=== PATIENT | male | born 1995 | race Caucasian/White ===

== ENCOUNTER → 2016-05-12 | Outpatient (CLI) | payer BC ==
--- NOTE | 2016-05-13 13:38 | MR ---
EXAM DATE: 05/12/16 PATIENT'S AGE: 20 Patient: EM UMANZOR Facility: [place], [place] Site . Site : 1995 Study: MRI Head [id number]/7/2017 6:20:23 PM Ordering Physician: Joann Hill Final Report: INDICATION: Paresthesias, history of frontal head injury, new onset headaches, abnormal neurological examination. Technique: Multiplanar multi sequence MR imaging of the brain was performed without intravenous contrast. Comparison: CT scan of the head 04/21/2016 Findings: No acute ischemia, edema, mass effect, midline shift, or hydrocephalus is demonstrated. Brain parenchymal volume appears within normal limits for age. The ventricular system is unremarkable. There is no parenchymal hemosiderin deposition. The expected major intracranial arterial flow voids are present proximally. The orbital contents are grossly unremarkable. There is extensive pansinus mucosal thickening. Mastoid air cells appear well-aerated. Impression : 1. No acute intracranial abnormality. 2. No parenchymal hemosiderin deposition. 3. Extensive pansinus mucosal thickening. Dictated by Esdras Gilliam MD @ May 13 2016 9:33AM (Electronic Signature) Report Signed by Proxy and Original Signed Document filed in the Medical Record. [facility]
== END ==
LOC: MW.MRI 15:57
PROVIDERS: ATTEND Family Medicine
DX: R20.2 Paresthesia of skin (principal); R29.90 Unspecified symptoms and signs involving the nervous system
CPT/HCPCS: 70551; 70551-26

== ENCOUNTER → 2016-07-03 | Outpatient (CLI) | payer BC ==
--- NOTE | 2016-07-03 07:43 | PCM.PRNOTE ---
- Free Text/Narrative Note: Date of service 07/03/2016 Exercise ECG Indication palpitation Patient was brought to the stress test lab in postabsorptive state verbal and paper consent was obtained from patient Vital signs at resting state blood pressure of 112/74 with a heart rate of 81 EKG shows sinus rhythm, No ST changes Maximal heart rate of 179 and target heart rate is 168 Patient reached the target heart rate, completed stage III Ramón protocol EKG shows sinus tachycardia, no further ST changes, intermittent wide QRS complex beat, at the HR 120s, 170s, suspecting pre-excitation. Peak blood pressure is 146/78 Total exercise time of 11.13 minutes METS 12.8 The test terminated due to reaching target HR Impression Normal hemodynamics, normal chronotropic, good exercise capacity Plan Per primary team
--- NOTE | 2016-07-07 17:15 | ECHO ---
The echocardiogram report can be seen in this patient's EMR in the Reports section MTDD
== END ==
LOC: MW.NM 07:08
PROVIDERS: ATTEND Family Medicine
DX: R07.9 Chest pain, unspecified (principal)
CPT/HCPCS: 93017; 93306

== ENCOUNTER 2017-12-05 20:27 | Emergency (ER) | payer BC, OTHER ==
--- NOTE | 2017-12-05 20:54 | EDM.PDOC ---
<Shabbir Gifford - Last Filed: 12/05/17 22:00> ED HPI GENERAL MEDICAL PROBLEM - General Chief Complaint: Laceration Stated Complaint: CUT HIS WRIST CUT AT WORK Time Seen by Provider: 12/05/17 20:50 Source of Information: Reports: Patient History Limitations: Reports: No Limitations - History of Present Illness INITIAL COMMENTS - FREE TEXT/NARRATIVE: HISTORY AND PHYSICAL: History of present illness: Patient is a 22-year-old male here with complaint of left wrist injury and laceration. He states that he was using a high-speed saw when it "blew up" and cut him in the left volar wrist on the radial side. Patient feels that some of the saw pieces may be left in the wrist. He states that he has pain and feels popping when he tries to extend his wrist. Review of systems: As per history of present illness and below otherwise all systems reviewed and negative. Past medical history: As per history of present illness and as reviewed below otherwise noncontributory. Surgical history: As per history of present illness and as reviewed below otherwise noncontributory. Social history: No reported history of drug or alcohol abuse. Family history: As per history of present illness and as reviewed below otherwise noncontributory. Physical exam: General: Patient sitting comfortably in no acute distress and nontoxic appearing HEENT: Atraumatic, normocephalic, pupils reactive, negative for conjunctival pallor or scleral icterus, mucous membranes moist, throat clear, neck supple, nontender, trachea midline. No meningeal signs. Lungs: Clear to auscultation, breath sounds equal bilaterally, chest nontender. Heart: S1S2, regular, negative for clicks, rubs, or overt murmur. Abdomen: Soft, nondistended, nontender. Negative for masses or hepatosplenomegaly. Negative for costovertebral tenderness. Extremities: There is a 2cm deep laceration to left volar wrist on the radial side. Patient has full ROM 2nd-5th digits, unable to move MCP of 1st digit. negative for cords or calf pain. Neurovascular unremarkable. Neuro: Awake, alert, oriented. Cranial nerves II through XII unremarkable. Cerebellum unremarkable. Motor and sensory unremarkable throughout. Exam nonfocal. Notes: Discussed with Dr. Yates, hand surgeon at [facility], he suggest flushing, debriding, and suturing close. Follow up with Dr. Yates at his clinic tomorrow. Wound closed by Dr. Gleason. Diagnostics: Left wrist x-ray Therapeutics: 4mg Morphine IV Tdap Prescriptions: Impression: Laceration left hand Plan: 1. Follow up with Dr. Yates, hand surgery, at his clinic in [facility] 2. Return to ED as needed as discussed Definitive disposition and diagnosis as appropriate pending reevaluation and review of above. left wrist Pain Score (Numeric/FACES): 10 - Related Data Allergies Allergy/AdvReac Type Severity Reaction Status Date / Time ibuprofen Allergy Other Verified 12/05/17 20:50 Home Meds: Home Meds . [No Known Home Meds] 12/05/17 [History] Past Medical History - Past Health History Medical/Surgical History: Denies Medical/Surgical History HEENT History: Reports: None Cardiovascular History: Reports: Other (See Below) Other Cardiovascular History: tachycardia Respiratory History: Reports: None Gastrointestinal History: Reports: None Genitourinary History: Reports: None Musculoskeletal History: Reports: None Neurological History: Reports: None Psychiatric History: Reports: None Endocrine/Metabolic History: Reports: None Hematologic History: Reports: None Oncologic (Cancer) History: Reports: None Dermatologic History: Reports: None - Infectious Disease History Infectious Disease History: Reports: Influenza - Past Surgical History HEENT Surgical History: Reports: Oral Surgery Cardiovascular Surgical History: Reports: Other (See Below) Social & Family History - Family History Family Medical History: Noncontributory - Caffeine Use Caffeine Use: Reports: None ED ROS GENERAL - Review of Systems Review Of Systems: ROS reveals no pertinent complaints other than HPI. ED EXAM, SKIN/RASH Exam: See Below (see dictation) Course - Vital Signs Last Recorded V/S: Last Vital Signs Temp 96.5 F 12/05/17 20:27 Pulse 76 12/05/17 21:15 Resp 18 12/05/17 21:15 BP 116/66 12/05/17 20:27 Pulse Ox 99 12/05/17 21:15 - Orders/Labs/Meds Orders: Active Orders 24 hr Category Date Time Status Vaccines to be Administered [RC] PER UNIT ROUTINE Care 12/05/17 21:55 Active Wrist 2V Lt [CR] Stat Exams 12/05/17 20:44 Taken Meds: Medications Discontinued Medications Generic Name Dose Route Start Last Admin Trade Name Farzad PRN Reason Stop Dose Admin Bacitracin Confirm 12/06/17 00:06 12/06/17 00:13 Bacitracin Oint 1 Gm Administered 12/06/17 00:07 Not Given Dose 1 dose .ROUTE .STK-MED ONE Bacitracin 1 dose 12/06/17 00:13 12/06/17 00:14 Bacitracin Oint 1 Gm TOP 12/06/17 00:14 1 dose ONETIME ONE Administration Diphtheria/Tetanus/Acell Pertussis 0.5 ml 12/05/17 21:55 12/05/17 22:06 Adacel IM 12/05/17 21:56 0.5 ml .ONCE ONE Administration Ceftriaxone Sodium 1 gm/ 50 mls @ 100 mls/hr 12/05/17 22:03 12/05/17 22:25 Sodium Chloride IV 12/05/17 22:32 Not Given ONETIME ONE Ceftriaxone Sodium/Dextrose Confirm 12/05/17 22:12 12/05/17 22:21 Rocephin In Dextrose,Iso-Osm 1 Gm/50 Ml Administered 12/05/17 22:13 Not Given Dose 50 mls @ as directed .ROUTE .STK-MED ONE Lidocaine HCl Confirm 12/05/17 22:13 12/05/17 22:23 Xylocaine-Mpf 1% Administered 12/05/17 22:14 Not Given Dose 10 mls @ as directed .ROUTE .STK-MED ONE Ceftriaxone Sodium/Dextrose 1 50 mls @ 100 mls/hr 12/05/17 22:16 12/05/17 22: 17 gm/ Premix IV 12/05/17 22:45 100 mls/hr ONETIME ONE Administration Lidocaine HCl 10 ml 12/05/17 21:59 12/05/17 22:25 Xylocaine 1% INJECT 12/05/17 22:00 Not Given ONETIME ONE Lidocaine HCl 10 ml 12/05/17 22:21 12/05/17 22:22 Xylocaine-Mpf 1% INJECT 12/05/17 22:22 10 ml ONETIME ONE Administration Lidocaine HCl 10 ml 12/06/17 00:12 12/06/17 00:13 Xylocaine-Mpf 1% INJECT 12/06/17 00:13 10 ml ONETIME ONE Administration Morphine Sulfate 2 mg 12/05/17 21:08 12/05/17 21:12 Morphine IVPUSH 12/05/17 21:09 2 mg ONETIME ONE Administration Morphine Sulfate 2 mg 12/05/17 21:53 12/05/17 21:59 Morphine IVPUSH 12/05/17 21:54 2 mg ONETIME ONE Administration Departure - Departure Time of Disposition: 22:01 Disposition: Home, Self-Care 01 Condition: Good Clinical Impression: Laceration - Discharge Information Referrals: PCP,None [Primary Care Provider] - Forms: ED Department Discharge Additional Instructions: The following information is given to patients seen in the emergency department who are being discharged to home. This information is to outline your options for follow-up care. We provide all patients seen in our emergency department with a follow-up referral. The need for follow-up, as well as the timing and circumstances, are variable depending upon the specifics of your emergency department visit. If you don't have a primary care physician on staff, we will provide you with a referral. We always advise you to contact your personal physician following an emergency department visit to inform them of the circumstance of the visit and for follow-up with them and/or the need for any referrals to a consulting specialist. The emergency department will also refer you to a specialist when appropriate. This referral assures that you have the opportunity for follow-up care with a specialist. All of these measure are taken in an effort to provide you with optimal care, which includes your follow-up. Under all circumstances we always encourage you to contact your private physician who remains a resource for coordinating your care. When calling for follow-up care, please make the office aware that this follow-up is from your recent emergency room visit. If for any reason you are refused follow-up, please contact the [facility] Emergency Department at and asked to speak to the emergency department charge nurse. 1. Follow up with Dr. Yates, hand surgery, at his clinic in [facility] 2. Return to ED as needed as discussed <Mikhail Gleason - Last Filed: 12/06/17 00:25> ED HPI GENERAL MEDICAL PROBLEM - General Source of Information: Reports: Patient History Limitations: Reports: No Limitations - History of Present Illness INITIAL COMMENTS - FREE TEXT/NARRATIVE: Dr. Gleason taking over patient care at 2200 hrs. I have been thoroughly briefed on the patient and reviewed all labs and radiologic findings. I personally examined the patient and agree with the above. As above, Dr. Yates, hand surgeon, at [facility] is going to follow-up with this patient. He instructed us to "close the wound as best as we can". Using a total of 10 mL's of 1% lidocaine area of interest was adequately anesthetized without complication. Under normal sterile procedure cautions, wound was explored for foreign bodies and thoroughly cleaned. No foreign bodies were identified. 3 interrupted 5-0 chromic gut sutures were used to close subcutaneous tissue and approximately muscle. Superficial skin layer was closed using 4-0 Ethilon with 4 vertical mattress sutures. Hemostasis was checked and achieved. Patient tolerated procedure well. Bacitracin was placed over wound and repaired laceration was covered with gauze and wrapped. Patient was discharged with a prescription for Keflex as well as [place] 5 mg #10 He was instructed to follow-up with Dr. Angelia vega, hand surgeon as above. In addition, while patient was in the emergency room he was given 1 g of Rocephin IV. Patient was discharged in good condition with instructions to return to emergency department if he showed any signs of infection including but not limited to increased pain, redness, swelling, or drainage. Patient was in full understanding. ED ROS GENERAL - Review of Systems Review Of Systems: ROS reveals no pertinent complaints other than HPI. ED EXAM, SKIN/RASH Exam: See Below Exam Limited By: No Limitations General Appearance: Alert, WD/WN, No Apparent Distress Ears: Normal External Exam, Normal Canal, Hearing Grossly Normal, Normal TMs Nose: Normal Inspection, Normal Mucosa, No Blood Throat/Mouth: Normal Inspection, Normal Lips, Normal Teeth, Normal Gums, Normal Oropharynx, Normal Voice, No Airway Compromise Head: Atraumatic, Normocephalic Neck: Normal Inspection, Supple, Non-Tender, Full Range of Motion Respiratory/Chest: No Respiratory Distress, Lungs Clear, Normal Breath Sounds, No Accessory Muscle Use, Chest Non-Tender Cardiovascular: Normal Peripheral Pulses, Regular Rate, Rhythm, No Edema, No Gallop, No JVD, No Murmur, No Rub GI/Abdominal: Normal Bowel Sounds, Soft, Non-Tender, No Organomegaly, No Distention, No Abnormal Bruit, No Mass (Male) Exam: No Hernia, Normal Inspection, Normal Prostate, Circumcised Rectal (Males) Exam: Normal Exam, Normal Rectal Tone, Prostate Normal Back Exam: Normal Inspection, Full Range of Motion, NT Extremities: Normal Inspection, Normal Range of Motion, Non-Tender, No Pedal Edema, Normal Capillary Refill Neurological: Alert, Oriented, CN II-XII Intact, Normal Cognition, Normal Gait, Normal Reflexes, No Motor/Sensory Deficits Psychiatric: Normal Affect, Normal Mood Lymphatic: No Adenopathy Departure - Departure Time of Disposition: 00:25 Condition: Good
[2017-12-05] MEDS ORDERED: Morphine 2 MG/ML Syringe IVPUSH ONE ×2 (21:08→21:53)
[2017-12-05] MEDS ORDERED: Diphtheria,Pertussis(Acell),Tetanus Vaccine 0.5 ML Syringe IM ONE (21:55)
[2017-12-05] MEDS ORDERED: Lidocaine 1% 10 ML MDV INJECT ONE (21:59)
[2017-12-05] MEDS ORDERED: cefTRIAXone 1 GM in Sodium Chloride 0.9% 50 ML IV ONE (22:03)
[2017-12-05] MEDS ORDERED: cefTRIAXone 1 GM in Premix Bag 1 BAG IV ONE (22:16)
[2017-12-06] MEDS ORDERED: Bacitracin Oint 1 GM U/D Packet ONE (00:06)
[2017-12-06] MEDS ORDERED: Bacitracin Oint 1 GM U/D Packet TOP ONE (00:13)
[2017-12-06 00:44] VITALS: BP 152/77
--- NOTE | 2017-12-06 19:24 | CR ---
EXAM DATE: 12/05/17 PATIENT'S AGE: 22 Patient: EM UMANZOR Facility: [place], [place] Site . Site : 1995 Study: XRay Extremity Left wrist [id number]/30/2018 9:33:26 PM Ordering Physician: Doctor Henry Final Report: INDICATION: Cut left wrist with a metal grinder at work. FINDINGS: AP and lateral views of the left wrist were obtained. There is no acute fracture seen or dislocation. There is air in the subcutaneous tissue in the volar aspect of the wrist with a tiny amount of radiopaque debris in the region of the laceration. IMPRESSION: 1. No acute bone abnormality. 2. Air and a tiny amount of radiopaque debris in the volar soft tissue of the wrist. Dictated by Mahesh Leon MD @ 12/05/2017 9:46:25 PM Dictated by: Mahesh Leon MD @ 12/05/2017 21:46:52 (Electronic Signature) Report Signed by Proxy. MTDShadi
== END 2017-12-06 00:45 | disposition home or self-care (01) ==
LOC: MW.ED 20:27
DX: S61.512A Laceration without foreign body of left wrist, initial encounter (principal); Z23 Encounter for immunization; Z88.6 Allergy status to analgesic agent; W27.0XXA Contact with workbench tool, initial encounter
CPT/HCPCS: 12031; 73100; 90471; 90715; 96365; 96375; 96376; 99283; J0696; J2270

== ENCOUNTER 2019-04-21 16:29 | Emergency (ER) | payer SELFPAY ==
--- NOTE | 2019-04-21 17:09 | EDM.PDOC ---
ED HPI GENERAL MEDICAL PROBLEM - General Chief Complaint: Abdominal Pain Stated Complaint: ABDOMINAL PAIN Time Seen by Provider: 04/21/19 17:08 Source of Information: Reports: Patient - History of Present Illness INITIAL COMMENTS - FREE TEXT/NARRATIVE: Patient presents complaining of abdominal pain. It began 3 days ago. It is better if he stands and worse if he sits. Eating does not change the pain. It is associated with decreased appetite and nausea, but no vomiting. It is a stabbing pain. It seems to start in the left and right aspects of the periumbilical region, and goes into both lower quadrants. Middle Abdominal Pain Score (Numeric/FACES): 7 - Related Data Allergies Allergy/AdvReac Type Severity Reaction Status Date / Time ibuprofen Allergy Other Verified 04/21/19 16:44 tramadol Allergy Agitation Verified 04/21/19 16:44 Home Meds: Home Meds . [No Known Home Meds] 12/05/17 [History] Past Medical History - Past Health History Medical/Surgical History: Denies Medical/Surgical History HEENT History: Reports: None Cardiovascular History: Reports: Other (See Below) Other Cardiovascular History: tachycardia Respiratory History: Reports: None Gastrointestinal History: Reports: None Genitourinary History: Reports: None Musculoskeletal History: Reports: None Neurological History: Reports: None Psychiatric History: Reports: None Endocrine/Metabolic History: Reports: None Hematologic History: Reports: None Oncologic (Cancer) History: Reports: None Dermatologic History: Reports: None - Infectious Disease History Infectious Disease History: Reports: Influenza - Past Surgical History HEENT Surgical History: Reports: Oral Surgery Cardiovascular Surgical History: Reports: Other (See Below) Social & Family History - Family History Family Medical History: Noncontributory - Tobacco Use Smoking Status *Q: Current Every Day Smoker Years of Tobacco use: 4 Packs/Tins Daily: 0.5 - Caffeine Use Caffeine Use: Reports: Energy Drinks - Alcohol Use Days Per Week of Alcohol Use: 1 Number of Drinks Per Day: 2 Total Drinks Per Week: 2 - Recreational Drug Use Recreational Drug Use: No ED ROS GENERAL - Review of Systems Review Of Systems: See Below Constitutional: Denies: Fever, Malaise, Weakness, Weight Loss, Weight Gain Respiratory: Denies: Shortness of Breath, Cough GI/Abdominal: Reports: Abdominal Pain, Nausea. Denies: Constipation, Diarrhea : Denies: Dysuria Skin: Denies: Jaundice Neurological: Denies: Headache ED EXAM, GI/ABD - Physical Exam Exam: See Below Text/Narrative:: General: alert, well appearing, no acute distress HEENT: Atraumatic, normocephalic, pupils reactive, negative for conjunctival pallor or scleral icterus, mucous membranes moist, throat clear, neck supple, nontender, trachea midline. Lungs: Clear to auscultation, breath sounds equal bilaterally, chest nontender. Heart: S1S2, regular, negative for clicks, rubs, or JVD. Abdomen: Soft, nondistended. Tender in both lower quadrants without peritoneal signs. NABS. Negative for masses or hepatosplenomegaly. : (chaperoned by Kaykay RN). Nl appearing external male genitalia. No penile lesions, discharge. No scrotal masses, lesions, tenderness. Skin: warm, dry, good turgor. Anicteric. Musculoskeletal: soft compartments. Extremities: Atraumatic, negative for cords or calf pain. Neurovascular unremarkable. Neuro: Awake, alert, oriented. Cranial nerves II through XII unremarkable. Cerebellum unremarkable. Motor and sensory unremarkable throughout. Exam nonfocal. Course - Vital Signs Text/Narrative:: Cbc: unremarkable Cmp: mild hypoglycemia (glu 64), otherwise unremarkable Lipase: nl UA: neg CT abdomen/pelvis: Report advises normal appendix with no etiology for the patient's lower abdominal pain. 7:40pm Pt informed of results. Has declined pain meds in ED and is comfortable. Due to mild hypogly, pt given 4 oz apple juice, which he drank without difficulty. No PMD; will refer to [facility]. Return precautions given. Last Recorded V/S: Last Vital Signs Temp 98.2 F 04/21/19 16:41 Pulse 67 04/21/19 20:20 Resp 16 04/21/19 20:20 BP 128/70 04/21/19 20:20 Pulse Ox 97 04/21/19 20:20 - Orders/Labs/Meds Orders: Active Orders 24 hr Category Date Time Status Saline Lock Insert [OM.PC] Stat Oth 04/21/19 17:23 Ordered Labs: Laboratory Tests 04/21/19 04/21/19 04/21/19 Range/Units 17:26 17:26 18:30 WBC 7.16 (4.0-11.0) K/uL RBC 5.51 (4.50-5.90) M/uL Hgb 16.9 (13.0-17.0) g/dL Hct 50.3 H (38.0-50.0) % MCV 91.3 (80.0-98.0) fL MCH 30.7 (27.0-32.0) pg MCHC 33.6 (31.0-37.0) g/dL RDW Std Deviation 44.5 (28.0-62.0) fl RDW Coeff of Cisco 13 (11.0-15.0) % Plt Count 220 (150-400) K/uL MPV 9.70 (7.40-12.00) fL Neut % (Auto) 52.6 (48.0-80.0) % Lymph % (Auto) 30.9 (16.0-40.0) % [place] % (Auto) 11.3 (0.0-15.0) % Eos % (Auto) 3.9 (0.0-7.0) % Baso % (Auto) 1.3 (0.0-1.5) % Neut # (Auto) 3.8 (1.4-5.7) K/uL Lymph # (Auto) 2.2 (0.6-2.4) K/uL [place] # (Auto) 0.8 (0.0-0.8) K/uL Eos # (Auto) 0.3 (0.0-0.7) K/uL Baso # (Auto) 0.1 (0.0-0.1) K/uL Nucleated RBC % 0.0 /100WBC Nucleated RBCs # 0 K/uL Sodium 143 (136-148) mmol/L Potassium 4.2 (3.5-5.1) mmol/L Chloride 107 (98-107) mmol/L Carbon Dioxide 29.2 (21.0-32.0) mmol/L BUN 14 (7.0-18.0) mg/dL Creatinine 0.9 (0.8-1.3) mg/dL Est Cr Clr Drug Dosing 125.47 mL/min Estimated GFR (MDRD) > 60.0 ml/min Glucose 64 L (74-106) mg/dL Calcium 9.0 (8.5-10.1) mg/dL Total Bilirubin 0.5 (0.2-1.0) mg/dL AST 23 (15-37) IU/L ALT 40 (14-63) IU/L Alkaline Phosphatase 92 (46-116) U/L Total Protein 7.9 (6.4-8.2) g/dL Albumin 4.0 (3.4-5.0) g/dL Globulin 3.9 (2.6-4.0) g/dL Albumin/Globulin Ratio 1.0 (0.9-1.6) Lipase 76 (73-393) U/L Urine Color YELLOW Urine Appearance CLEAR Urine pH 8.0 (5.0-8.0) Ur Specific [place] 1.015 (1.001-1.035) Urine Protein NEGATIVE (NEGATIVE) mg/dL Urine Glucose (UA) NEGATIVE (NEGATIVE) mg/dL Urine Ketones NEGATIVE (NEGATIVE) mg/dL Urine Occult Blood NEGATIVE (NEGATIVE) Urine Nitrite NEGATIVE (NEGATIVE) Urine Bilirubin NEGATIVE (NEGATIVE) Urine Urobilinogen 0.2 (<2.0) EU/dL Ur Leukocyte Esterase NEGATIVE (NEGATIVE) Urine RBC 0-1 (0-2/HPF) Urine WBC 0-1 (0-5/HPF) Ur Epithelial Cells RARE (NONE-FEW) Urine Bacteria RARE (NEGATIVE) Meds: Medications Discontinued Medications Generic Name Dose Route Start Last Admin Trade Name Freq PRN Reason Stop Dose Admin Sodium Chloride 1,000 mls @ 999 mls/hr 04/21/19 17:23 04/21/19 17:41 Normal Saline IV 04/21/19 18:23 999 mls/hr BOLUS ONE Administration Iopamidol 100 ml 04/21/19 18:33 04/21/19 18:34 Isovue Multipack-370 (76%) IVPUSH 04/21/19 18:34 100 ml ONETIME STA Administration Ondansetron HCl 4 mg 04/21/19 17:23 04/21/19 17:42 Zofran IVPUSH 04/21/19 17:24 4 mg ONETIME ONE Administration Sodium Chloride 10 ml 04/21/19 17:23 04/21/19 17:42 Saline Flush FLUSH 10 ml ASDIRECTED PRN Administration Keep Vein Open Sodium Chloride 2.5 ml 04/21/19 17:23 04/21/19 17:42 Saline Flush FLUSH 2.5 ml ASDIRECTED PRN Administration Keep Vein Open Departure - Departure Time of Disposition: 19:40 Disposition: Home, Self-Care 01 Condition: Good Clinical Impression: Abdominal pain Qualifiers: Abdominal location: unspecified location Qualified Code(s): R10.9 - Unspecified abdominal pain - Discharge Information Instructions: Abdominal Pain, Adult, [id number] Referrals: PCP,None [Primary Care Provider] - Forms: ED Department Discharge Care Plan Goals: The following information is given to patients seen in the emergency department who are being discharged to home. This information is to outline your options for follow-up care. We provide all patients seen in our emergency department with a follow-up referral. The need for follow-up, as well as the timing and circumstances, are variable depending upon the specifics of your emergency department visit. If you don't have a primary care physician on staff, we will provide you with a referral. We always advise you to contact your personal physician following an emergency department visit to inform them of the circumstance of the visit and for follow-up with them and/or the need for any referrals to a consulting specialist. The emergency department will also refer you to a specialist when appropriate. This referral assures that you have the opportunity for follow-up care with a specialist. All of these measure are taken in an effort to provide you with optimal care, which includes your follow-up. Under all circumstances we always encourage you to contact your private physician who remains a resource for coordinating your care. When calling for follow-up care, please make the office aware that this follow-up is from your recent emergency room visit. If for any reason you are refused follow-up, please contact the [facility] Emergency Department at and asked to speak to the emergency department charge nurse. [facility] [address] [place] [id number] [address] Sepsis Event Note - Evaluation Sepsis Screening Result: No Definite Risk - Focused Exam Vital Signs: Vital Signs Temp Pulse Resp BP Pulse Ox 04/21/19 20:20 67 16 128/70 97 04/21/19 19:00 70 16 130/74 97 04/21/19 16:41 98.2 F 107 H 18 138/72 98 Date Exam was Performed: 04/21/19 Time Exam was Performed: 21:05 - My Orders Last 24 Hours: My Active Orders 04/21/19 17:23 Saline Lock Insert [OM.PC] Stat - Assessment/Plan Last 24 Hours: My Active Orders 04/21/19 17:23 Saline Lock Insert [OM.PC] Stat
[2019-04-21] MEDS ORDERED: Sodium Chloride 0.9% 10 ML Syringe FLUSH PRN (17:23)
[2019-04-21] MEDS ORDERED: Ondansetron 4 MG/2 ML SDV IVPUSH ONE (17:23)
[2019-04-21] MEDS ORDERED: Sodium Chloride 0.9% 2.5 ML Syringe FLUSH PRN (17:23)
[2019-04-21] MEDS ORDERED: Sodium Chloride 0.9% 1,000 ML IV ONE (17:23)
[2019-04-21 17:54] LABS: BLOOD UREA NITROGEN,BUN 14 mg/dL (7.0-18.0); CARBON DIOXIDE,CO2 29.2 mmol/L (21.0-32.0); CHLORIDE,CL 107 mmol/L (98-107); GLUCOSE RANDOM 64 mg/dL (74-106); LIPASE 76 U/L (73-393); POTASSIUM,K 4.2 mmol/L (3.5-5.1); SODIUM,NA 143 mmol/L (136-148)
[2019-04-21] MEDS ORDERED: Iopamidol 755 MG/ML 500 ML Multipack Bottle IVPUSH STA (18:33)
--- NOTE | 2019-04-21 19:17 | CT ---
INDICATION: Lower abdominal pelvic pain TECHNIQUE: CT abdomen and pelvis acquired with IV contrast. COMPARISON: None FINDINGS: In the lower thorax there is a calcified granuloma present in the right lower lobe. The lung bases are otherwise clear. The liver, gallbladder, spleen, pancreas, adrenal glands, kidneys, appendix, urinary bladder, prostate and seminal vesicles appear normal. The abdominal aorta is normal in caliber with no lymphadenopathy or ascites. A circumferential left renal vein is noted as a normal variant. No gastric, small bowel or colonic abnormalities are seen. No abdominal wall or pelvic hernia is seen. There are no acute osseous lesions evident. Mild broad-based intervertebral disk bulging is present at L4-5. IMPRESSION: 1. Normal appendix with no etiology for patient`s lower abdominal and pelvic pain. 2. Evidence of old healed calcified granulomatous disease. 3. Mild broad-based intervertebral disc bulging at L4-5. 4. Other findings are as discussed above. Please note that all CT scans at this facility use dose modulation, iterative reconstruction, and/or weight-based dosing when appropriate to reduce radiation dose to as low as reasonably achievable. Dictated by Sergio Patel MD @ Apr 21 2019 7:07PM Signed by Dr. Sergio Patel @ Apr 21 2019 7:16PM
[2019-04-21 20:21] VITALS: BP 128/70; PULSE 67
== END 2019-04-21 20:20 | disposition home or self-care (01) ==
LOC: MW.ED 16:29
DX: R10.31 Right lower quadrant pain (principal); R10.32 Left lower quadrant pain; F17.210 Nicotine dependence, cigarettes, uncomplicated; Z88.6 Allergy status to analgesic agent
CPT/HCPCS: 74177; 80053; 81001; 83690; 85025; 96361; 96374; 99284; J2405; J7030; Q9967

== ENCOUNTER 2020-10-08 17:36 | Emergency (ER) | payer BC ==
--- NOTE | 2020-10-08 19:31 | EDM.PDOC ---
ED HPI GENERAL MEDICAL PROBLEM - General Chief Complaint: Skin Complaint Stated Complaint: PAIN IN BOTH FEET, FEET TURNING PURPLE Time Seen by Provider: 10/08/20 19:18 - History of Present Illness INITIAL COMMENTS - FREE TEXT/NARRATIVE: 24-year-old male no active medical problems presenting with bilateral foot pain and irritation. Patient got new work boots 3 months ago. They hurt more than normal as he was breaking in millimeters. But then over the last week he has noted worsening pain in his forefoot and across his toes and sensation that his toes are being squeezed and then irritation and burning it causes him to need to stop and take his shoes and socks off. No fevers but some tingling in the forefoot as well. Symptoms improve when he wears his tennis shoes and gets out of his work boots. bilateral feet Pain Score (Numeric/FACES): 4 - Related Data Allergies Allergy/AdvReac Type Severity Reaction Status Date / Time ibuprofen Allergy Other Verified 10/08/20 19:07 tramadol Allergy Agitation Verified 10/08/20 19:07 Home Meds: Home Meds . [No Known Home Meds] 12/05/17 [History] Past Medical History - Past Health History Medical/Surgical History: Denies Medical/Surgical History HEENT History: Reports: None Cardiovascular History: Reports: Other (See Below) Other Cardiovascular History: tachycardia Respiratory History: Reports: None Gastrointestinal History: Reports: None Genitourinary History: Reports: None Musculoskeletal History: Reports: None Neurological History: Reports: None Psychiatric History: Reports: None Endocrine/Metabolic History: Reports: None Hematologic History: Reports: None Immunologic History: Reports: None Oncologic (Cancer) History: Reports: None Dermatologic History: Reports: None - Infectious Disease History Infectious Disease History: Reports: Influenza - Past Surgical History Head Surgeries/Procedures: Reports: None HEENT Surgical History: Reports: Oral Surgery Cardiovascular Surgical History: Reports: Other (See Below) Other Cardiovascular Surgeries/Procedures: heart surgery Social & Family History - Family History Family Medical History: No Pertinent Family History - Tobacco Use Tobacco Use Status *Q: Current Every Day Tobacco User Years of Tobacco use: 10 Packs/Tins Daily: 0.5 - Caffeine Use Caffeine Use: Reports: None - Recreational Drug Use Recreational Drug Use: No ED ROS GENERAL - Review of Systems Review Of Systems: See Below Free Text/Narrative/Comment: General: No fever. Skin: Per HPI Musculoskeletal: Per HPI ED EXAM, SKIN/RASH Exam: See Below Text/Narrative:: General Appearance: No acute distress, appears comfortable Skin: Patient has signs of early trench foot with callus formation and some moisture related skin breakdown particularly around the toes on the right side. There is no exudate there is no drainage there is nothing that suggests fungal infection or other acute infective process no signs of abscess or cellulitis no draining or open wounds Musculoskeletal: 2+ bilateral DP and PT pulses, bilateral feet warm and well- perfused sensation intact in the toes. Neurologic: Awake, alert, no obvious deficits, moving all extremities Psychiatric: Appropriate, cooperative Course - Vital Signs Last Recorded V/S: Last Vital Signs Temp 98.4 F 10/08/20 19:04 Pulse 92 10/08/20 19:04 Resp 18 10/08/20 19:04 BP 144/84 H 10/08/20 19:04 Pulse Ox 98 10/08/20 19:04 Departure - Departure Time of Disposition: 19:29 Disposition: Home, Self-Care 01 Condition: Good Clinical Impression: Trench foot - Discharge Information *PRESCRIPTION DRUG MONITORING PROGRAM REVIEWED*: Not Applicable *COPY OF PRESCRIPTION DRUG MONITORING REPORT IN PATIENT MITCHEL: Not Applicable Referrals: PCP,None [Primary Care Provider] - Additional Instructions: Your symptoms are due to breakdown of your skin related to the compression of the front of your foot by your current work boots combined with moisture buildup and the resulting skin breakdown. You do not have any sign of athlete's foot. And it is not consistent with anything related to diabetes. I recommend that you buy new work boots that you make sure that the toe box and forefoot area has plenty of room and does not feel constricted at all. It is important you keep your feet clean and that you keep your socks dry. I encourage you to bring extra pairs of socks to work. For the next several days to few weeks I encourage you to make sure to take your shoes and socks off for half an hour during the workday to allow everything to dry out. Over time this will allow the skin on your feet to heal. If you have specific areas that become more painful more red or irritated or if you develop any abnormal drainage please make an appointment at one of the primary care clinics or the urgent care. [facility] [address] [place] [id number] [facility] [address] [place] [address] The following information is given to patients seen in the emergency department who are being discharged to home. This information is to outline your options for follow-up care. We provide all patients seen in our emergency department with a follow-up referral. The need for follow-up, as well as the timing and circumstances, are variable depending upon the specifics of your emergency department visit. If you don't have a primary care physician on staff, we will provide you with a referral. We always advise you to contact your personal physician following an emergency department visit to inform them of the circumstance of the visit and for follow-up with them and/or the need for any referrals to a consulting specialist. The emergency department will also refer you to a specialist when appropriate. This referral assures that you have the opportunity for follow-up care with a specialist. All of these measure are taken in an effort to provide you with optimal care, which includes your follow-up. Under all circumstances we always encourage you to contact your private physician who remains a resource for coordinating your care. When calling for follow-up care, please make the office aware that this follow-up is from your recent emergency room visit. If for any reason you are refused follow-up, please contact the [facility] Emergency Department at and asked to speak to the emergency department charge nurse. Sepsis Event Note (ED) - Evaluation Sepsis Screening Result: No Definite Risk - Focused Exam Vital Signs: Vital Signs Temp Pulse Resp BP Pulse Ox 10/08/20 19:04 98.4 F 92 18 144/84 H 98 - Assessment/Plan Assessment:: 24-year-old male presenting with signs and symptoms most consistent with early trench foot. No sign of acute infective process. Patient describes symptoms that worsen over the course of wearing the work boots he is likely having some mild tarsal tunnel syndrome as well given the numbness and tingling in the forefoot. Extremities are neurovascularly intact and without sign of acute infection. No wounds require repair. We discussed at length getting new work boots and making sure that he had plenty of space in the toe box. We discussed the importance of bringing extra socks to work. Patient states that he has been taking his shoes and socks off at his desk in the middle of the day for approxim ately 30 minutes as this helps him feel better. I encourage this behavior as well. Return precautions discussed and understood.
[2020-10-08 19:45] VITALS: BP 126/75; PULSE 73
== END 2020-10-08 19:44 | disposition home or self-care (01) ==
LOC: MW.ED 17:36
DX: T69.021A Immersion foot, right foot, initial encounter (principal); Z72.0 Tobacco use; Z88.5 Allergy status to narcotic agent; Z88.8 Allergy status to other drugs, medicaments and biological substances
CPT/HCPCS: 99283

== ENCOUNTER 2020-11-19 09:05 | Emergency (ER) | payer BC ==
--- NOTE | 2020-11-19 09:16 | PCM.EKG ---
#1 Interpretation EKG Date: 11/19/20 Time: 09:06 Rhythm: NSR Rate (Beats/Min): 88 [place]: Normal P-Wave: Present QRS: Normal ST-T: Normal QT: Normal Comparison: No Change (06/21/16) EKG Interpretation Comments: Sinus Rhythm
[2020-11-19] MEDS ORDERED: Aspirin 81 MG Tab.Chew PO ONE (09:27)
[2020-11-19 10:05] LABS: BLOOD UREA NITROGEN,BUN 11 mg/dL (7.0-18.0); CARBON DIOXIDE,CO2 27.3 mmol/L (21.0-32.0); CHLORIDE,CL 102 mmol/L (98-107); GLUCOSE RANDOM 107 mg/dL (74-106); POTASSIUM,K 3.6 mmol/L (3.5-5.1); SODIUM,NA 140 mmol/L (136-148)
--- NOTE | 2020-11-19 11:11 | CR ---
INDICATION: Chest pain. COMPARISON: None. TECHNIQUE: Portable AP chest. FINDINGS: Normal size cardiac silhouette. Clear lung mabry with no evidence of acute pneumonic infiltrates or CHF. No pneumothorax or pleural effusion. IMPRESSION: Negative chest. Dictated by Makayla Richards MD @ 11/19/2020 11:10:28 AM (Electronically Signed)
--- NOTE | 2020-11-19 12:49 | EDM.PDOC ---
ED HPI GENERAL MEDICAL PROBLEM - General Chief Complaint: Cardiovascular Problem Stated Complaint: HEART ISSUES Time Seen by Provider: 11/19/20 09:17 - History of Present Illness INITIAL COMMENTS - FREE TEXT/NARRATIVE: CHIEF COMPLAINT(S): Palpitations HISTORY OF PRESENT ILLNESS: This is a 25-year-old man without any significant past medical history who presents to the emergency department chief complaint of palpitations. The patient states that approximately 45 minutes prior to arrival he started to experience his heart racing. He states that when these palpitations occurred he felt very weak and was concerned. He denies any chest pain or shortness of breath. He states that since that time it has resolved however he was still concerned about palpitations so he came to the emergency department. He denies any family history of sudden onset at young age or personal history of CAD or CHF. He denies any current illicit use but states that he did use cocaine approximately 4 to 5 days ago. He denies any excessive use of caffeine. REVIEW OF SYSTEMS: Constitutional: Denies fever, chills. Eyes: Denies eye pain Ears, Nose, Mouth, & Throat: Denies earache Cardiovascular: Positive for palpitations denies chest pain Respiratory: Denies shortness of breath Gastrointestinal: Denies Nausea, vomiting, diarrhea, hematochezia. Genitourinary: Denies hematuria Skin:Denies a rash MSK: Denies joint pain Neurological: Denies blurred vision Psychiatric: Denies depression PAST MEDICAL HISTORY: As per history of present illness and as reviewed below otherwise noncontributory. SURGICAL HISTORY: As per history of present illness and as reviewed below otherwise noncontributory. SOCIAL HISTORY: As per history of present illness and as reviewed below otherwise noncontributory. FAMILY HISTORY: As per history of present illness and as reviewed below otherwise noncontributory. EXAMINATION OF ORGAN SYSTEMS/BODY AREAS: Constitutional: Blood pressure was 140/86, heart rate 88, respiratory rate 18 with an oxygen saturation of 98% on room air. Temperature 36.6 General: Well-appearing man who is in no acute distress Psychiatric: Appropriate mood and affect. Eyes: No scleral icterus or conjunctival erythema ENMT: Moist mucous membranes. No pharyngeal erythema Cardiovascular: Regular, rate, and rhythm. No gallops, murmurs, or rubs. Bilateral upper extremity pulses symmetric and intact. No peripheral edema. No JVD. Respiratory: Lungs clear to auscultation bilaterally. No wheezes, rales, or rhonchi. Gastrointestinal: Soft, non-tender, non-distended. Normoactive bowel sounds Genitourinary: No suprapubic tenderness Musculoskeletal: Normal range of motion. Skin: No lesions or abrasions. Neurological: Alert, GCS 15 MEDICAL DECISION MAKING AND COURSE IN THE ED WITH INTERPRETATION/REVIEW OF DIAGNOSTIC STUDIES: This is a 25-year-old man without any significant past medical history presents to the emergency department with acute onset palpitations was normal vital signs and appears well. At this time given his symptoms obtain an EKG. EKG was unremarkable. Will obtain CBC, BMP, and troponin. Obtain magnesium. Differential at this time includes side effect from cocaine versus arrhythmia. We will place the patient on cardiac monitoring and pulse oximetry. Patient currently denies any pain however we will provide the patient with aspirin by mouth. Laboratory: CBC is unremarkable. BMP is unremarkable. Magnesium is normal. Troponin is negative. The radiological images were viewed by myself along with reading the report from the radiologist. Chest x-ray does not reveal any acute cardiopulmonary process. After labs and imaging I did discuss results with the patient. I discussed that I would like to obtain a repeat troponin at this time. He was amenable to this and had no further questions. Repeat troponin was negative. I did have discussion with the patient regarding his final laboratory results. Encourage the patient to stop using cocaine. I discussed that he should follow with his primary care physician for reevaluation and to return for any new or worsening symptoms. He was amenable to discharge and had no further questions DISPOSITION: The patient was discharged home in stable condition. The patient will follow up with primary care physician in 3 to 5 days CONDITION: Fair PROCEDURES: None FINAL IMPRESSION(S)/DIAGNOSES: 1. Acute palpitations Esteban Viramontes M.D. - Related Data Allergies Allergy/AdvReac Type Severity Reaction Status Date / Time ibuprofen Allergy Other Verified 11/19/20 09:28 tramadol Allergy Agitation Verified 11/19/20 09:28 Home Meds: Home Meds . [No Known Home Meds] 12/05/17 [History] Past Medical History - Past Health History Medical/Surgical History: Denies Medical/Surgical History HEENT History: Reports: None Cardiovascular History: Reports: Other (See Below) Other Cardiovascular History: tachycardia Respiratory History: Reports: None Gastrointestinal History: Reports: None Genitourinary History: Reports: None Musculoskeletal History: Reports: None Neurological History: Reports: None Psychiatric History: Reports: None Endocrine/Metabolic History: Reports: None Hematologic History: Reports: None Immunologic History: Reports: None Oncologic (Cancer) History: Reports: None Dermatologic History: Reports: None - Infectious Disease History Infectious Disease History: Reports: Influenza - Past Surgical History Head Surgeries/Procedures: Reports: None HEENT Surgical History: Reports: Oral Surgery Cardiovascular Surgical History: Reports: Other (See Below) Other Cardiovascular Surgeries/Procedures: heart surgery Social & Family History - Family History Family Medical History: No Pertinent Family History - Tobacco Use Tobacco Use Status *Q: Current Some Day Tobacco User Years of Tobacco use: 10 Packs/Tins Daily: 0.5 Second Hand Smoke Exposure: No - Caffeine Use Caffeine Use: Reports: None - Recreational Drug Use Recreational Drug Use: Yes Drug Use in Last 12 Months: Yes Recreational Drug Type: Reports: Cocaine ED ROS GENERAL - Review of Systems Review Of Systems: See Below ED EXAM, GENERAL - Physical Exam Exam: See Below Course - Vital Signs Last Recorded V/S: Last Vital Signs Temp 36.7 C 11/19/20 13:09 Pulse 72 11/19/20 13:09 Resp 18 11/19/20 13:09 BP 128/73 11/19/20 13:09 Pulse Ox 98 11/19/20 13:09 - Orders/Labs/Meds Labs: Laboratory Tests 11/19/20 11/19/20 11/19/20 Range/Units 09:15 09:15 11:55 WBC 7.46 (4.0-11.0) K/uL RBC 5.29 (4.50-5.90) M/uL Hgb 16.8 (13.0-17.0) g/dL Hct 49.0 (38.0-50.0) % MCV 92.6 (80.0-98.0) fL MCH 31.8 (27.0-32.0) pg MCHC 34.3 (31.0-37.0) g/dL RDW Std Deviation 45.0 (28.0-62.0) fl RDW Coeff of Cisco 13 (11.0-15.0) % Plt Count 234 (150-400) K/uL MPV 9.70 (7.40-12.00) fL Neut % (Auto) 57.5 (48.0-80.0) % Lymph % (Auto) 30.7 (16.0-40.0) % Ashley % (Auto) 8.0 (0.0-15.0) % Eos % (Auto) 3.1 (0.0-7.0) % Baso % (Auto) 0.7 (0.0-1.5) % Neut # (Auto) 4.3 (1.4-5.7) K/uL Lymph # (Auto) 2.3 (0.6-2.4) K/uL Ashley # (Auto) 0.6 (0.0-0.8) K/uL Eos # (Auto) 0.2 (0.0-0.7) K/uL Baso # (Auto) 0.1 (0.0-0.1) K/uL Nucleated RBC % 0.0 /100WBC Nucleated RBCs # 0 K/uL Sodium 140 (136-148) mmol/L Potassium 3.6 (3.5-5.1) mmol/L Chloride 102 (98-107) mmol/L Carbon Dioxide 27.3 (21.0-32.0) mmol/L BUN 11 (7.0-18.0) mg/dL Creatinine 1.1 (0.8-1.3) mg/dL Est Cr Clr Drug Dosing 104.15 mL/min Estimated GFR (MDRD) > 60.0 ml/min Glucose 107 H (74-106) mg/dL Calcium 9.2 (8.5-10.1) mg/dL Magnesium 1.9 (1.8-2.4) mg/dL Troponin I < 0.050 < 0.050 (0.000-0.056) ng/mL Meds: Medications Discontinued Medications Generic Name Dose Route Start Last Admin Trade Name Freq PRN Reason Stop Dose Admin Aspirin 324 mg 11/19/20 09:27 11/19/20 09:42 Aspirin 81 Mg Tab.Chew PO 11/19/20 09:28 324 mg ONETIME ONE Administration Departure - Departure Time of Disposition: 12:48 Disposition: Home, Self-Care 01 Condition: Fair Clinical Impression: Chest pain, Palpitations, Cocaine use - Discharge Information *PRESCRIPTION DRUG MONITORING PROGRAM REVIEWED*: No *COPY OF PRESCRIPTION DRUG MONITORING REPORT IN PATIENT MITCHEL: No Instructions: Cocaine Use Disorder, Nonspecific Chest Pain, Adult, [id number], Palpitations, [id number] Referrals: PCP,None [Primary Care Provider] - Forms: ED Department Discharge Additional Instructions: You were evaluated today on an emergent basis. At this time your work-up was negative. Given your history of abnormal arrhythmia would like you to follow-up with your primary care physician for further reevaluation and possible referral. At this time I do recommend that you not use cocaine again. If you have any worsening pain, shortness of breath or passed out I would like you to return to the emergency department. [facility] [address] [place] [id number] [facility] [address] [place] [id number] The patient is informed of any results of their evaluation and diagnostic workup and all questions are answered. They are given discharge instructions and return precautions. The patient is stable for discharge. The patient states they understand and agree with the plan and that they will return if their symptoms get worse or if they have any new concerns. The following information is given to patients seen in the emergency department who are being discharged to home. This information is to outline your options for follow-up care. We provide all patients seen in our emergency department with a follow-up referral. The need for follow-up, as well as the timing and circumstances, are variable depending upon the specifics of your emergency department visit. If you don't have a primary care physician on staff, we will provide you with a referral. We always advise you to contact your personal physician following an emergency department visit to inform them of the circumstance of the visit and for follow-up with them and/or the need for any referrals to a consulting specialist. The emergency department will also refer you to a specialist when appropriate. This referral assures that you have the opportunity for follow-up care with a specialist. All of these measure are taken in an effort to provide you with optimal care, which includes your follow-up. Under all circumstances we always encourage you to contact your private physician who remains a resource for coordinating your care. When calling for follow-up care, please make the office aware that this follow-up is from your recent emergency room visit. If for any reason you are refused follow-up, please contact the [facility] Emergency Department at and asked to speak to the emergency department charge nurse. Sepsis Event Note (ED) - Evaluation Sepsis Screening Result: No Definite Risk
[2020-11-19 14:36] VITALS: BP 128/73; PULSE 72
== END 2020-11-19 13:09 | disposition home or self-care (01) ==
LOC: MW.ED 09:05
DX: R07.9 Chest pain, unspecified (principal); R00.2 Palpitations; F14.90 Cocaine use, unspecified, uncomplicated; Z88.5 Allergy status to narcotic agent; Z88.8 Allergy status to other drugs, medicaments and biological substances; Z72.0 Tobacco use
CPT/HCPCS: 36415; 71045; 80048; 83735; 84484; 85025; 93005; 99285; A9270

== ENCOUNTER 2022-04-01 20:58 | Emergency (ER) | payer BC ==
[2022-04-01 21:16] VITALS: BP 136/95
[2022-04-01] MEDS ORDERED: Lidocaine 1% 5 ML VIAL INJECT ONE (21:17)
[2022-04-01 21:42] VITALS: PULSE 78
== END 2022-04-01 21:41 | disposition home or self-care (01) ==
LOC: MW.ED 20:58
DX: S61.212A Laceration without foreign body of right middle finger without damage to nail, initial encounter (principal); S61.214A Laceration without foreign body of right ring finger without damage to nail, initial encounter; S61.216A Laceration without foreign body of right little finger without damage to nail, initial encounter; F17.210 Nicotine dependence, cigarettes, uncomplicated; Z88.5 Allergy status to narcotic agent; Z91.030 Bee allergy status; Z88.8 Allergy status to other drugs, medicaments and biological substances; W26.0XXA Contact with knife, initial encounter
CPT/HCPCS: 12001; 12002; 73130-26-RT; 73130-RT; 99283; J3490

== ENCOUNTER 2022-08-22 16:14 | Emergency (ER) | payer BC ==
[2022-08-22] MEDS ORDERED: Sodium Chloride 0.9% 10 ML Syringe FLUSH PRN (16:27)
[2022-08-22] MEDS ORDERED: Ondansetron 4 MG/2 ML SDV IVPUSH ONE (16:27)
[2022-08-22] MEDS ORDERED: Famotidine 20 MG/2 ML SDV IVPUSH ONE (16:27)
[2022-08-22] MEDS ORDERED: Sodium Chloride 0.9% 2.5 ML Syringe FLUSH PRN (16:27)
[2022-08-22 16:40] LABS: BASOPHILS ABSOLUTE AUTO 0.1 K/uL (0.0-0.1); BASOPHILS PERCENT AUTO 1.2 % (0.0-1.5); EOSINOPHILS ABSOLUTE AUTO 0.4 K/uL (0.0-0.7); EOSINOPHILS PERCENT AUTO 3.7 % (0.0-7.0); HEMATOCRIT 50.1 % (38.0-50.0); HEMOGLOBIN 17.5 g/dL (13.0-17.0); LYMPHOCYTES ABSOLUTE AUTO 4.1 K/uL (0.6-2.4); LYMPHOCYTES PERCENT AUTO 41.6 % (16.0-40.0); MEAN CORPUSCULAR HEMOGLOBIN 32.1 pg (27.0-32.0); MEAN CORPUSCULAR HGB CONC 34.9 g/dL (31.0-37.0); MEAN CORPUSCULAR VOLUME 91.8 fL (80.0-98.0); MONOCYTES ABSOLUTE AUTO 0.9 K/uL (0.0-0.8); MONOCYTES PERCENT AUTO 8.9 % (0.0-15.0); NEUTROPHILS ABSOLUTE AUTO 4.4 K/uL (1.4-5.7); NEUTROPHILS PERCENT AUTO 44.6 % (48.0-80.0); NRBC ABSOLUTE 0 K/uL; PLATELET COUNT,PLT 232 K/uL (150-400); RED BLOOD CELL COUNT 5.46 M/uL (4.50-5.90); WHITE BLOOD CELL COUNT,WBC 9.79 K/uL (4.0-11.0)
[2022-08-22] MEDS: fentaNYL 50 MCG/ML SDV IVPUSH ONE ×2 (16:44→16:53)
[2022-08-22 17:11] LABS: A/G RATIO 0.9 (0.9-1.6); ALANINE AMINOTRANSFERASE,ALT 214 IU/L (14-63); ALBUMIN 3.9 g/dL (3.4-5.0); ALKALINE PHOSPHATASE 85 U/L (46-116); ASPARTATE AMNIOTRANSFERASE,AST 102 IU/L (15-37); BILIRUBIN TOTAL 0.8 mg/dL (0.2-1.0); BLOOD UREA NITROGEN,BUN 9 mg/dL (7.0-18.0); CALCIUM 8.8 mg/dL (8.5-10.1); CARBON DIOXIDE,CO2 24.6 mmol/L (21.0-32.0); CHLORIDE,CL 103 mmol/L (98-107); CREATININE 1.2 mg/dL (0.8-1.3); EST CRCL DRUG DOSING (CG) 88.67 mL/min; GLUCOSE RANDOM 121 mg/dL (74-106); LIPASE 44 U/L (73-393); MAGNESIUM 1.9 mg/dL (1.8-2.4); POTASSIUM,K 3.5 mmol/L (3.5-5.1); PROTEIN TOTAL,TP 8.1 g/dL (6.4-8.2); SODIUM,NA 140 mmol/L (136-148)
[2022-08-22 17:13] LABS: ESTIMATED GFR 84 mL/min (>60)
[2022-08-22] MEDS ORDERED: Iopamidol 755 MG/ML 500 ML Multipack Bottle IVPUSH ONE (17:30)
[2022-08-22] MEDS ORDERED: Sucralfate Suspension 1 GM/10 ML Cup PO ONE (18:05)
[2022-08-22 18:33] VITALS: BP 132/65; PULSE 86
== END 2022-08-22 18:31 | disposition home or self-care (01) ==
LOC: MW.ED 16:14
DX: K70.0 Alcoholic fatty liver (principal); F17.210 Nicotine dependence, cigarettes, uncomplicated; Z88.6 Allergy status to analgesic agent; Z88.5 Allergy status to narcotic agent; Z91.030 Bee allergy status
CPT/HCPCS: 36415; 71046; 74177; 80053; 83690; 83735; 84100; 84484; 85025; 85379; 93005; 96374; 96375; 99285; A9270; J2405; J3490; Q9967; 93010; 99284; J3010

== ENCOUNTER 2022-09-13 12:31 | Emergency (ER) | payer BC ==
[2022-09-13] MEDS ORDERED: Ondansetron 4 MG/2 ML SDV IVPUSH ONE (13:34)
[2022-09-13] MEDS ORDERED: Sodium Chloride 0.9% 1,000 ML IV ONE (13:34)
[2022-09-13 14:03] LABS: BASOPHILS ABSOLUTE AUTO 0.1 K/uL (0.0-0.1); BASOPHILS PERCENT AUTO 0.8 % (0.0-1.5); EOSINOPHILS ABSOLUTE AUTO 0.2 K/uL (0.0-0.7); EOSINOPHILS PERCENT AUTO 2.5 % (0.0-7.0); HEMATOCRIT 48.9 % (38.0-50.0); HEMOGLOBIN 16.8 g/dL (13.0-17.0); LYMPHOCYTES ABSOLUTE AUTO 1.4 K/uL (0.6-2.4); LYMPHOCYTES PERCENT AUTO 18.7 % (16.0-40.0); MEAN CORPUSCULAR HEMOGLOBIN 31.8 pg (27.0-32.0); MEAN CORPUSCULAR HGB CONC 34.4 g/dL (31.0-37.0); MEAN CORPUSCULAR VOLUME 92.6 fL (80.0-98.0); MONOCYTES ABSOLUTE AUTO 0.7 K/uL (0.0-0.8); MONOCYTES PERCENT AUTO 9.3 % (0.0-15.0); NEUTROPHILS ABSOLUTE AUTO 5.2 K/uL (1.4-5.7); NEUTROPHILS PERCENT AUTO 68.7 % (48.0-80.0); PLATELET COUNT,PLT 213 K/uL (150-400); RED BLOOD CELL COUNT 5.28 M/uL (4.50-5.90); WHITE BLOOD CELL COUNT,WBC 7.55 K/uL (4.0-11.0)
[2022-09-13 14:35] LABS: ALBUMIN 3.9 g/dL (3.4-5.0); BILIRUBIN TOTAL 0.5 mg/dL (0.2-1.0); CALCIUM 9.2 mg/dL (8.5-10.1); CARBON DIOXIDE,CO2 26.9 mmol/L (21.0-32.0); CREATININE 0.8 mg/dL (0.8-1.3); EST CRCL DRUG DOSING (CG) 137.47 mL/min; POTASSIUM,K 4.3 mmol/L (3.5-5.1); PROTEIN TOTAL,TP 7.8 g/dL (6.4-8.2)
[2022-09-13 15:37] LABS: APPEARANCE,URINE CLEAR; BILIRUBIN,URINE NEGATIVE (NEGATIVE); COLOR,URINE YELLOW; GLUCOSE,URINE NEGATIVE (NEGATIVE); KETONES,URINE TRACE mg/dL (NEGATIVE); LEUKOCYTE ESTERASE,URINE NEGATIVE (NEGATIVE); NITRITE,URINE NEGATIVE (NEGATIVE); OCCULT BLOOD,URINE NEGATIVE (NEGATIVE); PH,URINE 5.5 (5.0-8.0); PROTEIN,URINE NEGATIVE (NEGATIVE); UROBILINOGEN,URINE 0.2 EU/dL (<2.0)
[2022-09-13 16:04] LABS: AMPHETAMINES SCREEN, URINE NEGATIVE (CUTOFF=500); BARBITURATE SCREEN,URINE NEGATIVE (CUTOFF=200); BENZODIAZEPINES SCREEN,URINE NEGATIVE (CUTOFF=150); BUPRENORPHINE SCREEN,URINE NEGATIVE (CUTOFF=10); METHADONE SCREEN, URINE NEGATIVE (CUTOFF=200); METHAMPHETAMINES SCREEN, URINE NEGATIVE (CUTOFF=500); OXYCODONE SCREEN,URINE NEGATIVE (CUT0FF=100); PCP SCREEN,URINE NEGATIVE (CUTOFF=25); PROPOXYPHENE SCREEN,URINE NEGATIVE (CUTOFF=300); THC SCREEN,URINE 20 NG/ML NEGATIVE (CUTOFF=50)
[2022-09-13 16:16] VITALS: BP 133/87; PULSE 57
== END 2022-09-13 16:16 | disposition home or self-care (01) ==
LOC: MW.ED 12:31
DX: K52.9 Noninfective gastroenteritis and colitis, unspecified (principal); F17.210 Nicotine dependence, cigarettes, uncomplicated; Z91.030 Bee allergy status; Z88.6 Allergy status to analgesic agent; Z88.5 Allergy status to narcotic agent
CPT/HCPCS: 36415; 80053; 80305; 81003; 83690; 85025; 96361; 96374; 99284; J2405; J7030

== ENCOUNTER 2022-11-23 02:36 | Emergency (ER) | payer BC ==
[2022-11-23 03:08] LABS: BASOPHILS ABSOLUTE AUTO 0.1 K/uL (0.0-0.1); BASOPHILS PERCENT AUTO 0.8 % (0.0-1.5); EOSINOPHILS ABSOLUTE AUTO 0.4 K/uL (0.0-0.7); EOSINOPHILS PERCENT AUTO 5.7 % (0.0-7.0); HEMOGLOBIN 16.1 g/dL (13.0-17.0); LYMPHOCYTES PERCENT AUTO 46.5 % (16.0-40.0); MEAN CORPUSCULAR HEMOGLOBIN 32.6 pg (27.0-32.0); MEAN CORPUSCULAR HGB CONC 34.3 g/dL (31.0-37.0); MEAN CORPUSCULAR VOLUME 95.1 fL (80.0-98.0); MONOCYTES ABSOLUTE AUTO 0.6 K/uL (0.0-0.8); MONOCYTES PERCENT AUTO 9.6 % (0.0-15.0); NEUTROPHILS ABSOLUTE AUTO 2.4 K/uL (1.4-5.7); NEUTROPHILS PERCENT AUTO 37.4 % (48.0-80.0); NRBC ABSOLUTE 0 K/uL; PLATELET COUNT,PLT 190 K/uL (150-400); RED BLOOD CELL COUNT 4.94 M/uL (4.50-5.90); WHITE BLOOD CELL COUNT,WBC 6.49 K/uL (4.0-11.0)
[2022-11-23 03:30] LABS: A/G RATIO 0.9 (0.9-1.6); ALBUMIN 3.3 g/dL (3.4-5.0); BILIRUBIN TOTAL 0.3 mg/dL (0.2-1.0); CALCIUM 8.6 mg/dL (8.5-10.1); CARBON DIOXIDE,CO2 26.7 mmol/L (21.0-32.0); CREATININE 0.8 mg/dL (0.8-1.3); EST CRCL DRUG DOSING (CG) 136.24 mL/min; POTASSIUM,K 3.5 mmol/L (3.5-5.1); PROTEIN TOTAL,TP 6.9 g/dL (6.4-8.2); TSH ULTRASENSITIVE 4.6 uIU/mL (0.36-3.74)
[2022-11-23 04:12] LABS: T4 FREE 0.75 ng/dL (0.76-1.46)
[2022-11-23 04:17] VITALS: BP 160/91; PULSE 62
== END 2022-11-23 04:28 | disposition home or self-care (01) ==
LOC: MW.ED 02:36
DX: R00.2 Palpitations (principal); Z91.018 Allergy to other foods; Z88.5 Allergy status to narcotic agent; Z88.6 Allergy status to analgesic agent; Z79.899 Other long term (current) drug therapy
CPT/HCPCS: 36415; 80053; 84439; 84443; 85025; 93005; 93010; 99282; 99285

== ENCOUNTER 2023-01-06 17:51 | Emergency (ER) | payer BC ==
[2023-01-06] MEDS ORDERED: Sodium Chloride 0.9% 2.5 ML Syringe FLUSH PRN (18:24)
[2023-01-06] MEDS ORDERED: Ketorolac 30 MG/ML SDV IVPUSH STA (18:25)
[2023-01-06] MEDS ORDERED: Acetaminophen 500 MG Tab PO STA (18:43)
[2023-01-06] MEDS ORDERED: Dexamethasone 10 MG/ML SDV IV STA (20:50)
[2023-01-06 21:28] VITALS: BP 138/84; PULSE 70
== END 2023-01-06 21:28 | disposition home or self-care (01) ==
LOC: MW.ED 17:51
DX: S39.92XA Unspecified injury of lower back, initial encounter (principal); Z88.6 Allergy status to analgesic agent; Z88.5 Allergy status to narcotic agent; Z91.030 Bee allergy status; X50.1XXA Overexertion from prolonged static or awkward postures, initial encounter; Y92.89 Other specified places as the place of occurrence of the external cause; Y99.0 Civilian activity done for income or pay
CPT/HCPCS: 72128; 72131; 96374; 96375; 99283; A9270; J1100; J3360; 99284; J3490

== ENCOUNTER 2023-02-28 23:33 | Emergency (ER) | payer BC ==
[2023-03-01] MEDS ORDERED: Sodium Chloride 0.9% 2.5 ML Syringe FLUSH PRN (00:33)
[2023-03-01] MEDS ORDERED: Sodium Chloride 0.9% 10 ML Syringe FLUSH PRN (00:33)
[2023-03-01] MEDS ORDERED: Ondansetron 4 MG/2 ML SDV IVPUSH ONE (00:34)
[2023-03-01 00:57] LABS: BASOPHILS PERCENT AUTO 1.6 % (0.0-1.0); EOSINOPHILS ABSOLUTE AUTO 0.28 K/uL (0.00-0.45); EOSINOPHILS PERCENT AUTO 4.3 % (0.0-6.0); HEMATOCRIT 48.6 % (42.0-52.0); HEMOGLOBIN 16.9 g/dL (14.0-18.0); IMMATURE GRAN ABSOLUTE AUTO 0.03 K/uL (0.00-0.05); IMMATURE GRAN PERCENT AUTO 0.5 % (0.0-0.4); LYMPHOCYTES ABSOLUTE AUTO 1.17 K/uL (1.00-4.80); LYMPHOCYTES PERCENT AUTO 18.2 % (24.0-44.0); MEAN CORPUSCULAR HEMOGLOBIN 32.2 pg (28.0-32.0); MEAN CORPUSCULAR HGB CONC 34.8 g/dL (32.0-36.0); MEAN CORPUSCULAR VOLUME 92.6 fL (83.0-99.0); MEAN PLATELET VOLUME 9.3 fL (9.4-12.4); MONOCYTES ABSOLUTE AUTO 0.62 K/uL (0.00-0.80); MONOCYTES PERCENT AUTO 9.6 % (0.0-8.0); NEUTROPHILS ABSOLUTE AUTO 4.24 K/uL (1.80-7.70); NEUTROPHILS PERCENT AUTO 65.8 % (41.0-71.0); PLATELET COUNT,PLT 195 K/uL (150-400); RED BLOOD CELL COUNT 5.25 M/uL (4.52-5.90); WHITE BLOOD CELL COUNT,WBC 6.44 K/uL (3.9-11.3)
[2023-03-01 01:22] LABS: ALBUMIN 3.8 g/dL (3.4-5.0); BILIRUBIN TOTAL 0.3 mg/dL (0.2-1.0); CALCIUM 8.5 mg/dL (8.5-10.1); CARBON DIOXIDE,CO2 28.8 mmol/L (21.0-32.0); CREATININE 1.1 mg/dL (0.8-1.3); EST CRCL DRUG DOSING (CG) 99.09 mL/min; POTASSIUM,K 3.8 mmol/L (3.5-5.1); PROTEIN TOTAL,TP 7.6 g/dL (6.4-8.2)
[2023-03-01] MEDS ORDERED: Lidocaine 4% 1 each Patch TOP PRN (01:36)
[2023-03-01 02:12] VITALS: PULSE 89
[2023-03-01 03:05] VITALS: BP 141/92
== END 2023-03-01 03:03 | disposition home or self-care (01) ==
LOC: MW.ED 23:33
DX: R07.9 Chest pain, unspecified (principal); I10 Essential (primary) hypertension; Z88.5 Allergy status to narcotic agent; Z88.8 Allergy status to other drugs, medicaments and biological substances; Z79.899 Other long term (current) drug therapy; Z91.030 Bee allergy status
CPT/HCPCS: 36415; 71046; 80053; 83690; 84484; 85025; 85379; 93005; 96374; 99285; A9270; J2405; J3490; 93010; 99284

== ENCOUNTER 2023-06-16 19:59 | Emergency (ER) | payer BC | END 2023-06-16 23:50 | disposition left against medical advice (07) | LOC: MW.ED 19:59 | DX: Z53.21 Procedure and treatment not carried out due to patient leaving prior to being seen by health care provider (principal) ==

== ENCOUNTER 2023-06-16 21:31 | Emergency (ER) | payer BC ==
[2023-06-16] MEDS: Ondansetron 4 MG Tab.DIS PO ONE (22:17)
[2023-06-16] MEDS: Acetaminophen/HYDROcodone 325-5 MG Tab PO ONE (22:17)
[2023-06-16] MEDS: Cefdinir 300 MG Cap PO ONE (23:37)
[2023-06-16 23:44] VITALS: BP 130/70; PULSE 82
== END 2023-06-16 23:42 | disposition home or self-care (01) ==
LOC: MW.ED 21:31
DX: S68.121A Partial traumatic metacarpophalangeal amputation of left index finger, initial encounter (principal); Z88.5 Allergy status to narcotic agent; Z88.6 Allergy status to analgesic agent; Z91.030 Bee allergy status; Z79.899 Other long term (current) drug therapy; Z75.8 Other problems related to medical facilities and other health care; W29.0XXA Contact with powered kitchen appliance, initial encounter
CPT/HCPCS: 73130; 99283; A9270

== ENCOUNTER 2023-06-19 08:25 | Emergency (ER) | payer BC ==
[2023-06-19] MEDS: Ondansetron 4 MG/2 ML SDV IVPUSH ONE (09:47)
[2023-06-19] MEDS: Ketorolac 30 MG/ML SDV IVPUSH ONE (09:48)
[2023-06-19] MEDS: fentaNYL 50 MCG/ML SDV IVPUSH ONE (09:48)
[2023-06-19 10:03] VITALS: BP 171/109; PULSE 85
== END 2023-06-19 11:07 | disposition home or self-care (01) ==
LOC: MW.ED 08:25
DX: S83.242A Other tear of medial meniscus, current injury, left knee, initial encounter (principal); Z79.899 Other long term (current) drug therapy; Z88.6 Allergy status to analgesic agent; Z88.5 Allergy status to narcotic agent; Z91.030 Bee allergy status; Z75.8 Other problems related to medical facilities and other health care; W10.1XXA Fall (on)(from) sidewalk curb, initial encounter
CPT/HCPCS: 73560; 96374; 96375; 99284; J1885; J2405; J3010

== ENCOUNTER 2023-06-23 00:55 | Emergency (ER) | payer BC, OTHER ==
[2023-06-23 01:15] LABS: BASOPHILS ABSOLUTE AUTO 0.09 K/uL (0.00-0.20); BASOPHILS PERCENT AUTO 1.2 % (0.0-1.0); EOSINOPHILS ABSOLUTE AUTO 0.25 K/uL (0.00-0.45); EOSINOPHILS PERCENT AUTO 3.4 % (0.0-6.0); HEMATOCRIT 48.9 % (42.0-52.0); HEMOGLOBIN 17.2 g/dL (14.0-18.0); IMMATURE GRAN ABSOLUTE AUTO 0.01 K/uL (0.00-0.05); IMMATURE GRAN PERCENT AUTO 0.1 % (0.0-0.4); LYMPHOCYTES ABSOLUTE AUTO 2.79 K/uL (1.00-4.80); LYMPHOCYTES PERCENT AUTO 37.8 % (24.0-44.0); MEAN CORPUSCULAR HEMOGLOBIN 31.7 pg (28.0-32.0); MEAN CORPUSCULAR HGB CONC 35.2 g/dL (32.0-36.0); MEAN CORPUSCULAR VOLUME 90.2 fL (83.0-99.0); MEAN PLATELET VOLUME 9.3 fL (9.4-12.4); MONOCYTES ABSOLUTE AUTO 0.87 K/uL (0.00-0.80); MONOCYTES PERCENT AUTO 11.8 % (0.0-8.0); NEUTROPHILS ABSOLUTE AUTO 3.38 K/uL (1.80-7.70); NEUTROPHILS PERCENT AUTO 45.7 % (41.0-71.0); PLATELET COUNT,PLT 174 K/uL (150-400); RED BLOOD CELL COUNT 5.42 M/uL (4.52-5.90); WHITE BLOOD CELL COUNT,WBC 7.39 K/uL (3.9-11.3)
[2023-06-23] MEDS: Sodium Chloride 0.9% 1,000 ML IV ONE (01:16)
[2023-06-23] MEDS: Sodium Chloride 0.9% 2.5 ML Syringe FLUSH PRN (01:16)
[2023-06-23] MEDS: Ondansetron 4 MG/2 ML SDV IVPUSH ONE (01:16)
[2023-06-23] MEDS: Sodium Chloride 0.9% 10 ML Syringe FLUSH PRN (01:18)
[2023-06-23 01:32] LABS: INR 1.02 (0.86-1.11); PTT,PARTIAL THROMBOPLSTIN TIME 29.3 SEC (23.9-30.7)
[2023-06-23 01:50] LABS: ACETAMINOPHEN <2.0 ug/mL; ALANINE AMINOTRANSFERASE,ALT 244 IU/L (14-63); ALBUMIN 3.8 g/dL (3.4-5.0); ALKALINE PHOSPHATASE 122 U/L (46-116); ASPARTATE AMNIOTRANSFERASE,AST 130 IU/L (15-37); BILIRUBIN TOTAL 0.5 mg/dL (0.2-1.0); BLOOD UREA NITROGEN,BUN 10 mg/dL (7.0-18.0); CALCIUM 9.3 mg/dL (8.5-10.1); CARBON DIOXIDE,CO2 25.6 mmol/L (21.0-32.0); CHLORIDE,CL 99 mmol/L (98-107); ETHANOL BLOOD MEDICAL 4 mg/dL; GLUCOSE RANDOM 111 mg/dL (74-106); LIPASE 23 U/L (16-77); MAGNESIUM 1.7 mg/dL (1.8-2.4); POTASSIUM,K 3.4 mmol/L (3.5-5.1); PROTEIN TOTAL,TP 7.7 g/dL (6.4-8.2); SALICYLATE 3.9 mg/dL (0.0-20.0); SODIUM,NA 136 mmol/L (136-148); TSH ULTRASENSITIVE 7.89 uIU/mL (0.36-3.74)
[2023-06-23 01:52] LABS: ESTIMATED GFR 104 mL/min (>60)
[2023-06-23] MEDS ORDERED: Naloxone 0.4 MG/ML SDV IVPUSH PRN (01:57)
[2023-06-23] MEDS ORDERED: Iopamidol 755 MG/ML 500 ML Multipack Bottle IVPUSH STA (02:00)
[2023-06-23] MEDS: fentaNYL 100 MCG/2 ML SDV IVPUSH ONE (02:01)
[2023-06-23] MEDS: Magnesium Sulfate/Water 2 GM in Premix Bag 1 BAG IV ONE (02:04)
[2023-06-23 03:08] LABS: T4 FREE 1.09 ng/dL (0.76-1.46)
[2023-06-23 03:16] LABS: APPEARANCE,URINE CLEAR; BILIRUBIN,URINE NEGATIVE (NEGATIVE); COLOR,URINE YELLOW; GLUCOSE,URINE NEGATIVE (NEGATIVE); KETONES,URINE NEGATIVE (NEGATIVE); LEUKOCYTE ESTERASE,URINE NEGATIVE (NEGATIVE); NITRITE,URINE NEGATIVE (NEGATIVE); OCCULT BLOOD,URINE NEGATIVE (NEGATIVE); PROTEIN,URINE NEGATIVE (NEGATIVE); UROBILINOGEN,URINE 0.2 EU/dL (<2.0)
[2023-06-23 03:26] LABS: AMPHETAMINES SCREEN, URINE NEGATIVE (CUTOFF=500); BARBITURATE SCREEN,URINE NEGATIVE (CUTOFF=200); BENZODIAZEPINES SCREEN,URINE NEGATIVE (CUTOFF=150); BUPRENORPHINE SCREEN,URINE NEGATIVE (CUTOFF=10); METHADONE SCREEN, URINE NEGATIVE (CUTOFF=200); METHAMPHETAMINES SCREEN, URINE NEGATIVE (CUTOFF=500); OXYCODONE SCREEN,URINE NEGATIVE (CUT0FF=100); PCP SCREEN,URINE NEGATIVE (CUTOFF=25); THC SCREEN,URINE 20 NG/ML NEGATIVE (CUTOFF=50)
[2023-06-23] MEDS: Potassium Chloride 10% 20 MEQ/15 ML Soln 15 ML UD Cup PO ONE (03:28)
[2023-06-23] MEDS: PHENobarbital Sodium 130 MG/ML SDV IVPUSH STA (03:29)
[2023-06-23 04:30] VITALS: BP 119/75; PULSE 76
== END 2023-06-23 04:29 | disposition home or self-care (01) ==
LOC: MW.ED 00:55
DX: K70.0 Alcoholic fatty liver (principal); F10.90 Alcohol use, unspecified, uncomplicated; Z91.030 Bee allergy status; Z88.6 Allergy status to analgesic agent; Z88.5 Allergy status to narcotic agent; Z79.899 Other long term (current) drug therapy; Y90.9 Presence of alcohol in blood, level not specified
CPT/HCPCS: 36415; 74177; 80053; 80143; 80179; 80305; 80307; 81003; 83690; 83735; 84439; 84443; 84484; 85025; 85610; 85730; 93005; 96361; 96365; 96375; 99284; A9270; J2405; J2560; J3010; J3475; J3490; J7030; 93010

== ENCOUNTER 2023-06-30 09:09 | Day surgery (SDC) | payer BC, OTHER ==
[~2023-06-30 09:09] MED LIST: ceFAZolin 2 GM in Sodium Chloride 0.9% 50 ML IV ONE
[2023-06-30] MEDS ORDERED: Propofol 200 MG/20 ML SDV ONE (09:23)
[2023-06-30] MEDS ORDERED: fentaNYL 100 MCG/2 ML SDV ONE ×2 (09:23→10:31)
[2023-06-30] MEDS ORDERED: Bupivacaine 0.5%/EPINEPHrine 1:200,000 30 ML SDV ONE (09:31)
[2023-06-30] MEDS ORDERED: HYDROmorphone 1 MG/ML Syringe IVPUSH PRN (09:40)
[2023-06-30] MEDS ORDERED: Albuterol 0.083% 2.5 MG/3 ML Neb Soln NEB PRN (09:40)
[2023-06-30] MEDS ORDERED: Naloxone 0.4 MG/ML SDV IVPUSH PRN (09:40)
[2023-06-30] MEDS ORDERED: Morphine 2 MG/ML SYRINGE IVPUSH PRN (09:40)
[2023-06-30] MEDS ORDERED: droPERidol 5 MG/2 ML SDV IVPUSH PRN (09:40)
[2023-06-30] MEDS ORDERED: Ondansetron 4 MG/2 ML SDV IVPUSH PRN (09:40)
[2023-06-30] MEDS ORDERED: Metoclopramide 10 MG/2 ML SDV IVPUSH PRN (09:40)
[2023-06-30] MEDS ORDERED: fentaNYL 50 MCG/ML SDV IVPUSH PRN (09:40)
[2023-06-30] MEDS ORDERED: Midazolam 1 MG/ML 2 ML SDV ONE (09:48)
[2023-06-30] MEDS ORDERED: ceFAZolin 2 GM Vial ONE (10:08)
[2023-06-30] MEDS ORDERED: Water For Injection, Sterile 20 ML ONE ×2 (10:08→10:25)
[2023-06-30] MEDS ORDERED: HYDROmorphone 2 MG/ML Syringe ONE (10:21)
[2023-06-30] MEDS ORDERED: Dexamethasone 4 MG/ML 5 ML MDV ONE (10:25)
[2023-06-30] MEDS ORDERED: Ketorolac 30 MG/ML SDV ONE (10:25)
[2023-06-30] MEDS ORDERED: Ondansetron 4 MG/2 ML SDV ONE (10:25)
[2023-06-30] MEDS: Lactated Ringers 1,000 ML IV SCH (10:26)
[2023-06-30] MEDS ORDERED: Ropivacaine 0.5% 5 MG/ML 30 ML SDV ONE (11:53)
[2023-06-30] MEDS ORDERED: Lidocaine 2% 5 ML SDV ONE (11:55)
[2023-06-30] MEDS: Gabapentin 300 MG Cap PO ONE (14:01)
[2023-06-30 15:01] VITALS: BP 138/83; PULSE 65
== END 2023-06-30 14:20 | disposition home or self-care (01) ==
LOC: MW.SDS 09:09
PROVIDERS: ATTEND Orthopaedic Surgery
DX: S83.242A Other tear of medial meniscus, current injury, left knee, initial encounter (principal); K21.9 Gastro-esophageal reflux disease without esophagitis; I47.10 Supraventricular tachycardia, unspecified; Z98.890 Other specified postprocedural states; F17.210 Nicotine dependence, cigarettes, uncomplicated; W10.8XXA Fall (on) (from) other stairs and steps, initial encounter; Z88.6 Allergy status to analgesic agent; Z88.5 Allergy status to narcotic agent
CPT/HCPCS: 29882; A9270; J0131; J0690; J1100; J1170; J1885; J2250; J2405; J2704; J2795; J3010; J7120; J3490

== ENCOUNTER 2024-03-13 16:24 | Observation (INO) | payer OTHER ==
[2024-03-13] MEDS: Sodium Chloride 0.9% 1,000 ML IV ONE ×2 (18:12→23:01)
[2024-03-13] MEDS: Acetaminophen 500 MG Tab PO ONE (18:13)
[2024-03-13 18:19] LABS: BASOPHILS ABSOLUTE AUTO 0.11 K/uL (0.00-0.20); BASOPHILS PERCENT AUTO 1.2 % (0.0-1.0); EOSINOPHILS ABSOLUTE AUTO 0.43 K/uL (0.00-0.45); EOSINOPHILS PERCENT AUTO 4.8 % (0.0-6.0); HEMATOCRIT 47.2 % (42.0-52.0); HEMOGLOBIN 16.7 g/dL (14.0-18.0); IMMATURE GRAN ABSOLUTE AUTO 0.03 K/uL (0.00-0.05); IMMATURE GRAN PERCENT AUTO 0.3 % (0.0-0.4); LYMPHOCYTES ABSOLUTE AUTO 2.56 K/uL (1.00-4.80); LYMPHOCYTES PERCENT AUTO 28.8 % (24.0-44.0); MEAN CORPUSCULAR HEMOGLOBIN 34.3 pg (28.0-32.0); MEAN CORPUSCULAR HGB CONC 35.4 g/dL (32.0-36.0); MEAN CORPUSCULAR VOLUME 96.9 fL (83.0-99.0); MEAN PLATELET VOLUME 9.8 fL (9.4-12.4); MONOCYTES ABSOLUTE AUTO 0.78 K/uL (0.00-0.80); MONOCYTES PERCENT AUTO 8.8 % (0.0-8.0); NEUTROPHILS ABSOLUTE AUTO 4.97 K/uL (1.80-7.70); NEUTROPHILS PERCENT AUTO 56.1 % (41.0-71.0); PLATELET COUNT,PLT 228 K/uL (150-400); RED BLOOD CELL COUNT 4.87 M/uL (4.52-5.90); WHITE BLOOD CELL COUNT,WBC 8.88 K/uL (3.9-11.3)
[2024-03-13 18:47] LABS: A/G RATIO 0.9 (0.9-1.6); ALBUMIN 3.6 g/dL (3.4-5.0); BILIRUBIN TOTAL 0.5 mg/dL (0.2-1.0); CALCIUM 8.5 mg/dL (8.5-10.1); CARBON DIOXIDE,CO2 28.4 mmol/L (21.0-32.0); EST CRCL DRUG DOSING (CG) 108.01 mL/min; MAGNESIUM 2.1 mg/dL (1.8-2.4); PROTEIN TOTAL,TP 7.8 g/dL (6.4-8.2)
[2024-03-13] MEDS ORDERED: Ondansetron 4 MG/2 ML SDV IVPUSH PRN (20:07)
[2024-03-13] MEDS ORDERED: Melatonin 3 MG Tab PO PRN (20:07)
[2024-03-13] MEDS ORDERED: Acetaminophen 650 MG Supp RECTAL PRN (20:07)
[2024-03-13] MEDS ORDERED: Polyethylene Glycol 3350 Powder 17 GM Packet PO PRN (20:07)
[2024-03-13 20:26] LABS: HEMOGLOBIN A1C 5.7 %
[2024-03-13 20:37] LABS: AMPHETAMINES SCREEN, URINE NEGATIVE (CUTOFF=500); BARBITURATE SCREEN,URINE NEGATIVE (CUTOFF=200); BENZODIAZEPINES SCREEN,URINE NEGATIVE (CUTOFF=150); BUPRENORPHINE SCREEN,URINE NEGATIVE (CUTOFF=10); METHADONE SCREEN, URINE NEGATIVE (CUTOFF=200); METHAMPHETAMINES SCREEN, URINE NEGATIVE (CUTOFF=500); OXYCODONE SCREEN,URINE NEGATIVE (CUT0FF=100); PCP SCREEN,URINE NEGATIVE (CUTOFF=25); THC SCREEN,URINE 20 NG/ML NEGATIVE (CUTOFF=50)
[2024-03-13] MEDS: Thiamine 200 MG/2 ML MDV IVPUSH SCH (23:00)
[2024-03-13] MEDS: Nicotine 14 MG/24 Hr Patch TRDERM PRN (23:00)
[2024-03-13] MEDS: Folic Acid 1 MG Tab PO SCH (23:00)
[2024-03-13] MEDS: Pantoprazole 40 MG in Sodium Chloride 0.9% 10 ML IVPUSH SCH (23:01)
[2024-03-13] MEDS: Thiamine 200 MG/2 ML MDV IVPUSH ONE (23:05)
[2024-03-14] MEDS: LORazepam 2 MG/ML SDV IVPUSH PRN (02:49)
[2024-03-14 05:49] LABS: BASOPHILS ABSOLUTE AUTO 0.12 K/uL (0.00-0.20); BASOPHILS PERCENT AUTO 1.8 % (0.0-1.0); EOSINOPHILS ABSOLUTE AUTO 0.42 K/uL (0.00-0.45); EOSINOPHILS PERCENT AUTO 6.2 % (0.0-6.0); HEMATOCRIT 47.9 % (42.0-52.0); IMMATURE GRAN ABSOLUTE AUTO 0.03 K/uL (0.00-0.05); IMMATURE GRAN PERCENT AUTO 0.4 % (0.0-0.4); LYMPHOCYTES ABSOLUTE AUTO 2.15 K/uL (1.00-4.80); LYMPHOCYTES PERCENT AUTO 31.6 % (24.0-44.0); MEAN CORPUSCULAR HEMOGLOBIN 32.9 pg (28.0-32.0); MEAN CORPUSCULAR HGB CONC 33.4 g/dL (32.0-36.0); MEAN CORPUSCULAR VOLUME 98.6 fL (83.0-99.0); MEAN PLATELET VOLUME 10.1 fL (9.4-12.4); MONOCYTES ABSOLUTE AUTO 0.68 K/uL (0.00-0.80); NEUTROPHILS ABSOLUTE AUTO 3.41 K/uL (1.80-7.70); PLATELET COUNT,PLT 195 K/uL (150-400); RED BLOOD CELL COUNT 4.86 M/uL (4.52-5.90); WHITE BLOOD CELL COUNT,WBC 6.81 K/uL (3.9-11.3)
[2024-03-14 06:17] LABS: A/G RATIO 0.8 (0.9-1.6); ALBUMIN 3.3 g/dL (3.4-5.0); BILIRUBIN TOTAL 0.8 mg/dL (0.2-1.0); CARBON DIOXIDE,CO2 29.9 mmol/L (21.0-32.0); CREATININE 0.9 mg/dL (0.8-1.3); EST CRCL DRUG DOSING (CG) 120.02 mL/min; MAGNESIUM 1.9 mg/dL (1.8-2.4); POTASSIUM,K 3.8 mmol/L (3.5-5.1); PROTEIN TOTAL,TP 7.3 g/dL (6.4-8.2)
[2024-03-14] MEDS: Sodium Chloride 0.9% 1,000 ML IV SCH (06:44)
[2024-03-14 08:37] VITALS: PULSE 74
[2024-03-14] MEDS: Losartan 25 MG Tab PO SCH (08:41)
[2024-03-14] MEDS: Escitalopram 10 MG Tab PO SCH (08:41)
[2024-03-14 08:42] VITALS: BP 142/86
[2024-03-14] MEDS: Acetaminophen 325 MG Tab PO PRN (08:47)
== END 2024-03-14 12:45 | disposition home or self-care (01) ==
LOC: MW.ED 16:24 → MW.MS 20:10
PROVIDERS: ADMIT Family Medicine; ATTEND Family Medicine
DX: F10.139 Alcohol abuse with withdrawal, unspecified (principal); K21.9 Gastro-esophageal reflux disease without esophagitis; F41.9 Anxiety disorder, unspecified; Z79.899 Other long term (current) drug therapy
CPT/HCPCS: 36415; 80053; 80305; 80307; 83036; 83690; 83735; 85025; 87428; 87651; A9270; J2060; J2470; J3411; J7030; J7040

== ENCOUNTER 2024-06-21 09:31 | Emergency (ER) | payer OTHER ==
[2024-06-21] MEDS ORDERED: Sodium Chloride 0.9% 2.5 ML Syringe FLUSH PRN (09:41)
[2024-06-21] MEDS ORDERED: Sodium Chloride 0.9% 10 ML Syringe FLUSH PRN (09:41)
[2024-06-21 09:51] LABS: BASOPHILS ABSOLUTE AUTO 0.05 K/uL (0.00-0.20); BASOPHILS PERCENT AUTO 0.6 % (0.0-1.0); EOSINOPHILS ABSOLUTE AUTO 0.01 K/uL (0.00-0.45); EOSINOPHILS PERCENT AUTO 0.1 % (0.0-6.0); HEMATOCRIT 52.4 % (42.0-52.0); HEMOGLOBIN 17.7 g/dL (14.0-18.0); IMMATURE GRAN ABSOLUTE AUTO 0.04 K/uL (0.00-0.05); IMMATURE GRAN PERCENT AUTO 0.5 % (0.0-0.4); LYMPHOCYTES PERCENT AUTO 22.9 % (24.0-44.0); MEAN CORPUSCULAR HEMOGLOBIN 32.1 pg (28.0-32.0); MEAN CORPUSCULAR HGB CONC 33.8 g/dL (32.0-36.0); MEAN CORPUSCULAR VOLUME 94.9 fL (83.0-99.0); MEAN PLATELET VOLUME 9.4 fL (9.4-12.4); MONOCYTES ABSOLUTE AUTO 0.72 K/uL (0.00-0.80); MONOCYTES PERCENT AUTO 8.7 % (0.0-8.0); NEUTROPHILS ABSOLUTE AUTO 5.59 K/uL (1.80-7.70); NEUTROPHILS PERCENT AUTO 67.2 % (41.0-71.0); PLATELET COUNT,PLT 219 K/uL (150-400); RED BLOOD CELL COUNT 5.52 M/uL (4.52-5.90); WHITE BLOOD CELL COUNT,WBC 8.31 K/uL (3.9-11.3)
[2024-06-21 10:20] LABS: APPEARANCE,URINE CLEAR; BILIRUBIN,URINE NEGATIVE (NEGATIVE); COLOR,URINE YELLOW; GLUCOSE,URINE 100 mg/dL (NEGATIVE); KETONES,URINE NEGATIVE (NEGATIVE); LEUKOCYTE ESTERASE,URINE NEGATIVE (NEGATIVE); NITRITE,URINE NEGATIVE (NEGATIVE); OCCULT BLOOD,URINE NEGATIVE (NEGATIVE); PROTEIN,URINE NEGATIVE (NEGATIVE); UROBILINOGEN,URINE 0.2 EU/dL (<2.0)
[2024-06-21 10:24] LABS: A/G RATIO 0.9 (0.9-1.6); ALBUMIN 3.8 g/dL (3.4-5.0); BILIRUBIN TOTAL 0.5 mg/dL (0.2-1.0); CALCIUM 9.2 mg/dL (8.5-10.1); CARBON DIOXIDE,CO2 29.9 mmol/L (21.0-32.0); CREATININE 0.9 mg/dL (0.8-1.3); EST CRCL DRUG DOSING (CG) 120.02 mL/min; POTASSIUM,K 4.2 mmol/L (3.5-5.1); PROTEIN TOTAL,TP 8.1 g/dL (6.4-8.2)
[2024-06-21 10:31] LABS: BACTERIA,URINE RARE (NEGATIVE); EPITHELIAL CELLS,URINE RARE (NONE-FEW); RBC,URINE 0-2 (0-2/HPF); WBC,URINE 0-2 (0-5/HPF)
[2024-06-21] MEDS: Iopamidol 755 MG/ML 500 ML Multipack Bottle IVPUSH ONE (12:17)
[2024-06-21 13:32] VITALS: BP 155/91; PULSE 80
== END 2024-06-21 13:32 | disposition home or self-care (01) ==
LOC: MW.ED 09:31
DX: R10.9 Unspecified abdominal pain (principal); K21.9 Gastro-esophageal reflux disease without esophagitis; Z88.8 Allergy status to other drugs, medicaments and biological substances; Z79.899 Other long term (current) drug therapy; Z75.3 Unavailability and inaccessibility of health-care facilities
CPT/HCPCS: 36415; 74177; 76705; 80053; 81001; 83690; 85025; 99284; Q9967; 99283

== ENCOUNTER 2024-07-17 19:42 | Emergency (ER) | payer SELFPAY ==
[2024-07-17] MEDS: Thiamine 200 MG/2 ML MDV IVPUSH ONE (21:56)
[2024-07-17] MEDS: Sodium Chloride 0.9% 1,000 ML IV ONE (21:56)
[2024-07-17] MEDS: PHENobarbital Sodium 130 MG/ML SDV IV ONE (21:56)
[2024-07-17] MEDS: Ondansetron 4 MG/2 ML SDV IVPUSH ONE (22:05)
[2024-07-17 22:11] LABS: BASOPHILS ABSOLUTE AUTO 0.12 K/uL (0.00-0.20); BASOPHILS PERCENT AUTO 1.3 % (0.0-1.0); EOSINOPHILS ABSOLUTE AUTO 0.15 K/uL (0.00-0.45); EOSINOPHILS PERCENT AUTO 1.6 % (0.0-6.0); HEMATOCRIT 47.5 % (42.0-52.0); HEMOGLOBIN 16.9 g/dL (14.0-18.0); IMMATURE GRAN ABSOLUTE AUTO 0.04 K/uL (0.00-0.05); IMMATURE GRAN PERCENT AUTO 0.4 % (0.0-0.4); LYMPHOCYTES ABSOLUTE AUTO 1.95 K/uL (1.00-4.80); LYMPHOCYTES PERCENT AUTO 21.4 % (24.0-44.0); MEAN CORPUSCULAR HGB CONC 35.6 g/dL (32.0-36.0); MEAN CORPUSCULAR VOLUME 92.8 fL (83.0-99.0); MEAN PLATELET VOLUME 9.3 fL (9.4-12.4); MONOCYTES ABSOLUTE AUTO 0.74 K/uL (0.00-0.80); MONOCYTES PERCENT AUTO 8.1 % (0.0-8.0); NEUTROPHILS ABSOLUTE AUTO 6.13 K/uL (1.80-7.70); NEUTROPHILS PERCENT AUTO 67.2 % (41.0-71.0); PLATELET COUNT,PLT 252 K/uL (150-400); RED BLOOD CELL COUNT 5.12 M/uL (4.52-5.90); WHITE BLOOD CELL COUNT,WBC 9.13 K/uL (3.9-11.3)
[2024-07-17 22:28] LABS: APPEARANCE,URINE CLEAR; GLUCOSE,URINE NEGATIVE (NEGATIVE); KETONES,URINE TRACE mg/dL (NEGATIVE); LEUKOCYTE ESTERASE,URINE NEGATIVE (NEGATIVE); NITRITE,URINE NEGATIVE (NEGATIVE); OCCULT BLOOD,URINE NEGATIVE (NEGATIVE); PROTEIN,URINE 100 mg/dL (NEGATIVE)
[2024-07-17 22:29] LABS: AMPHETAMINES SCREEN, URINE NEGATIVE (CUTOFF=500); BARBITURATE SCREEN,URINE NEGATIVE (CUTOFF=200); BENZODIAZEPINES SCREEN,URINE NEGATIVE (CUTOFF=150); BUPRENORPHINE SCREEN,URINE NEGATIVE (CUTOFF=10); METHADONE SCREEN, URINE NEGATIVE (CUTOFF=200); METHAMPHETAMINES SCREEN, URINE NEGATIVE (CUTOFF=500); OXYCODONE SCREEN,URINE NEGATIVE (CUT0FF=100); PCP SCREEN,URINE NEGATIVE (CUTOFF=25); THC SCREEN,URINE 20 NG/ML NEGATIVE (CUTOFF=50)
[2024-07-17] MEDS: Iopamidol 755 MG/ML 500 ML Multipack Bottle IVPUSH ONE (22:31)
[2024-07-17 22:35] LABS: A/G RATIO 0.9 (0.9-1.6); ALBUMIN 3.9 g/dL (3.4-5.0); BILIRUBIN TOTAL 0.7 mg/dL (0.2-1.0); CALCIUM 9.6 mg/dL (8.5-10.1); CARBON DIOXIDE,CO2 25.5 mmol/L (21.0-32.0); CREATININE 0.9 mg/dL (0.8-1.3); EST CRCL DRUG DOSING (CG) 119.35 mL/min; POTASSIUM,K 3.6 mmol/L (3.5-5.1); PROTEIN TOTAL,TP 8.3 g/dL (6.4-8.2)
[2024-07-17 22:37] LABS: BILIRUBIN,URINE SMALL (NEGATIVE); COLOR,URINE DARK YELLOW
[2024-07-17 22:38] LABS: BACTERIA,URINE FEW (NEGATIVE); EPITHELIAL CELLS,URINE RARE (NONE-FEW); MUCUS,URINE FEW (NONE-MOD); RBC,URINE 0-2 (0-2/HPF)
[2024-07-18] MEDS: Ondansetron 4 MG/2 ML SDV IVPUSH ONE (00:05)
[2024-07-18 00:06] VITALS: BP 146/99; PULSE 86
== END 2024-07-18 00:16 | disposition home or self-care (01) ==
LOC: MW.ED 19:42
DX: K70.0 Alcoholic fatty liver (principal); F10.139 Alcohol abuse with withdrawal, unspecified; R74.01 Elevation of levels of liver transaminase levels; Z75.3 Unavailability and inaccessibility of health-care facilities; F17.200 Nicotine dependence, unspecified, uncomplicated; Z79.899 Other long term (current) drug therapy; Z88.8 Allergy status to other drugs, medicaments and biological substances
CPT/HCPCS: 36415; 74177; 80053; 80305; 80307; 81001; 83690; 83735; 85025; 96361; 96374; 96375; 96376; 99285; J2405; J2560; J3411; J7030; Q9967; 99283